=== PATIENT | male | born 1980 | race Caucasian/White ===

== ENCOUNTER 2017-12-05 13:14 | Observation (INO) | payer OTHER ==
[2017-12-05] MEDS ORDERED: NITROGLYCERIN 0.4 MG/TAB SL ONE (13:32)
[2017-12-05] MEDS ORDERED: NA CHLORIDE 0.9% 1,000 ML ONE (13:32)
[2017-12-05] MEDS ORDERED: ONDANSETRON 4 MG/2 ML VIAL ONE (13:32)
[2017-12-05 13:47] LABS: Absolute Lymphocytes (CBC) 3.1 K/uL (0.7-4.9); Absolute Monocytes 0.8 K/uL (0.1-1.3); Absolute Neutrophil 5.9 K/uL (1.8-8.0); Eosinophils % 1.5 % (0-4.4); Hematocrit 45.3 % (39.6-49.0); Lymphocytes % 30.8 % (15.3-44.8); MCH 30.7 pg (27.0-35.0); MCV 89.4 fL (80-100); MPV 9.3 fL (7.6-11.3); Monocytes % 7.7 % (3.3-12.3); RBC Red Blood Cell Count 5.06 M/uL (4.33-5.43)
[2017-12-05 13:53] LABS: Protime INR 1.03
[2017-12-05 14:00] LABS: ALT/SGPT 49 U/L (12-78); AST/SGOT 25 U/L (15-37); Albumin 3.6 g/dL (3.4-5.0); Alkaline Phosphatase 99 U/L (45-117); BUN Blood Urea Nitrogen 12 mg/dL (7-18); Bicarbonate 27 mmol/L (21-32); Bilirubin Direct < 0.1 mg/dL (0-0.2); Bilirubin Total 0.2 mg/dL (0.2-1.0); CKMB Creatine Kinase MB 1.7 ng/mL (0.3-3.6); Creatine Phosphokinase 147 U/L (39-308); Glucose Level 95 mg/dL (74-106); Lipase 162 U/L (73-393); NT PRO-BNP 7 pg/mL (<125); Protein, Total 7.8 g/dL (6.4-8.2); Sodium Level 139 mmol/L (136-145)
--- NOTE | 2017-12-05 14:33 | EKG ---
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
--- NOTE | 2017-12-05 14:44 | RAD REPORT ---
EXAM DESCRIPTION: [place] Single View12/05/2017 1:48 pm CLINICAL HISTORY: Chest pain COMPARISON: none FINDINGS: The lungs appear clear of acute infiltrate. The heart is normal size IMPRESSION: No acute abnormalities displayed
--- NOTE | 2017-12-05 15:56 | ER ---
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 Transition of care: patient was not received from another setting of care. Onset of symptoms was December 05, 2017. Risk Assessment: Do you want to hurt yourself or someone else? Patient reports no desire to harm self or others. Initial Sepsis Screen: Does the patient meet any 2 criteria? No. Patient's initial sepsis screen is negative. Does the patient have a suspected source of infection? No. Patient's initial sepsis screen is negative. Care prior to arrival: None. 13:17 Method Of Arrival: EMS: [facility] tw2 13:17 Acuity: ZULEIKA 3 tw2 Historical: - Allergies: 14:25 No Known Allergies; tw2 - Home Meds: 14:25 None [Active]; tw2 - PMHx: 14:25 None; tw2 - PSHx: 14:25 None; tw2 - Immunization history:: Adult Immunizations up to date. - Social history:: Smoking status: Patient uses tobacco products, smokes one pack cigarettes per day. - Ebola Screening: : Patient denies travel to an Ebola-affected area in the 21 days before illness onset. Screenin:25 Abuse screen: Denies threats or abuse. Nutritional screening: No deficits noted. tw2 Tuberculosis screening: No symptoms or risk factors identified. Fall Risk None identified. Assessment: 13:20 General: Appears in no apparent distress. obese, Behavior is calm, cooperative, tw2 appropriate for age. Pain: Complains of pain in left breast and left lateral anterior chest. Neuro: Level of Consciousness is awake, alert, obeys commands, Oriented to person, place, time, situation. Cardiovascular: Reports chest pain, Heart tones S1 S2 Capillary refill < 3 seconds Patient's skin is warm and dry. Respiratory: Airway is patent Respiratory effort is even, unlabored, Respiratory pattern is regular, symmetrical, Breath sounds are clear bilaterally. GI: No signs and/or symptoms were reported involving the gastrointestinal system. Abdomen is round non-distended, obese, Bowel sounds present X 4 quads. : No signs and/or symptoms were reported regarding the genitourinary system. EENT: No signs and/or symptoms were reported regarding the EENT system. Derm: No signs and/or symptoms reported regarding the dermatologic system. Skin is intact, is healthy with good turgor, Skin temperature is warm. Musculoskeletal: Range of motion: intact in all extremities. 14:24 Reassessment: Patient appears in no apparent distress at this time. No changes from tw2 previously documented assessment. Patient and/or family updated on plan of care and expected duration. Pain level reassessed. Patient is alert, oriented x 3, equal unlabored respirations, skin warm/dry/pink. 15:20 Reassessment: Patient appears in no apparent distress at this time. No changes from tw2 previously documented assessment. Patient and/or family updated on plan of care and expected duration. Pain level reassessed. Patient is alert, oriented x 3, equal unlabored respirations, skin warm/dry/pink. Patient states feeling better. Patient states symptoms have improved. 16:13 Reassessment: Patient appears in no apparent distress at this time. No changes from tw2 previously documented assessment. Patient and/or family updated on plan of care and expected duration. Pain level reassessed. Patient is alert, oriented x 3, equal unlabored respirations, skin warm/dry/pink. 17:12 Reassessment: Patient appears in no apparent distress at this time. No changes from tw2 previously documented assessment. Patient and/or family updated on plan of care and expected duration. Pain level reassessed. Patient is alert, oriented x 3, equal unlabored respirations, skin warm/dry/pink. 18:04 Reassessment: Patient appears in no apparent distress at this time. No changes from tw2 previously documented assessment. Patient and/or family updated on plan of care and expected duration. Pain level reassessed. Patient is alert, oriented x 3, equal unlabored respirations, skin warm/dry/pink. Vital Signs: 13:20 BP 135 / 122; Pulse 103; Resp 19; Pulse Ox 97% on R/A; Pain 10/10; tw2 13:38 BP 135 / 84; Pulse 121; Resp 17; Pulse Ox 95% on R/A; tw2 13:38 Temp 98.6(O); tw2 14:24 BP 116 / 74; Pulse 80; Resp 18; Pulse Ox 98% on R/A; tw2 15:20 BP 118 / 82; Pulse 99; Resp 15; Pulse Ox 99% on R/A; tw2 16:13 BP 111 / 66; Pulse 80; Resp 17; Pulse Ox 97% on R/A; tw2 17:12 BP 116 / 73; Pulse 78; Resp 17; Pulse Ox 97% on R/A; tw2 18:03 BP 129 / 93; Pulse 89; Resp 17; Pulse Ox 97% on R/A; tw2 ED Course: 13:17 Patient arrived in ED. hb 13:18 Jacek Burkett PA is PHCP. cp 13:18 Jacek Sheppard MD is Attending Physician. cp 13:18 Arm band placed on. tw2 13:18 Bed in low position. Call light in reach. Side rails up X2. patient monitor on. Pulse tw2 ox on. NIBP on. 13:24 Dilcia Flores RN is Primary Nurse. tw2 13:25 Inserted saline lock: 20 gauge in left antecubital area, using aseptic technique. Blood tw2 collected. 13:34 EKG done, by eligibility technician. reviewed by Jacek SAPP. at1 13:44 X-ray completed. Portable x-ray completed in exam room. Patient tolerated procedure ag1 well. 13:48 XRAY Chest (1 view) In Process Unspecified. EDMS 14:26 Triage completed. tw2 15:54 Sujata Urrutia MD is Hospitalizing Provider. cp 17:56 Awaiting: attempted to call report, per Carmen, trade union secretary nurse does not know she is tw2 getting a patient and to give her a few minutes. 17:57 No provider procedures requiring assistance completed. Patient admitted, IV remains in tw2 place. Administered Medications: 13:28 Drug: Zofran 4 mg Route: IVP; Site: left antecubital; tw2 15:21 Follow up: Response: No adverse reaction tw2 13:30 Drug: Nitroglycerin 0.4 mg Route: Sublingual; tw2 13:45 Follow up: Response: No adverse reaction; Pain is decreased tw2 13:37 Drug: NS 0.9% 1000 ml Route: IV; Rate: 1 bolus; Site: left antecubital; tw2 16:30 Follow up: IV Status: Completed infusion; IV Intake: 1000ml tw2 Intake: 16:30 IV: 1000ml; Total: 1000ml. tw2 Outcome: 15:55 Decision to Hospitalize by Provider. cp 18:05 Admitted to Med/surg accompanied by tech, via wheelchair, room 421, Report called to tw2 NAOMI Castellano 18:05 Condition: stable 18:05 Instructed on the need for admit. 18:30 Patient left the ED. 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
--- NOTE | 2017-12-05 15:56 | EDPHYS ---
Physician Documentation [facility] Name: Teresita Mireles Age: 37 yrs Sex: Male : 1980 Arrival Date: 12/05/2017 Time: 13:17 Bed 25 Private MD: ED Physician Jacek Sheppard HPI: 12/05 13:15 This 37 yrs old Male presents to ER via Unassigned with complaints of chest cp pain. 13:15 The patient or guardian reports chest pain that is located primarily in the left cp lateral anterior chest and left breast. The pain does not radiate. Duration: The patient or guardian reports a single episode, that is still ongoing. Modifying factors: the symptoms are aggravated by deep breath. 13:15 Patient reports pain started while at work today. cp Historical: - Allergies: 14:25 No Known Allergies; tw2 - Home Meds: 14:25 None [Active]; tw2 - PMHx: 14:25 None; tw2 - PSHx: 14:25 None; tw2 - Immunization history:: Adult Immunizations up to date. - Social history:: Smoking status: Patient uses tobacco products, smokes one pack cigarettes per day. - Ebola Screening: : Patient denies travel to an Ebola-affected area in the 21 days before illness onset. ROS: 13:20 Constitutional: Negative for chills, fever, poor PO intake. cp 13:20 Eyes: Negative for injury, pain, redness, and discharge. cp 13:20 ENT: Negative for drainage from ear(s), ear pain, sore throat, difficulty swallowing, difficulty handling secretions. 13:20 Neck: Negative for pain with movement, pain at rest, stiffness. 13:20 Cardiovascular: Positive for chest pain, Negative for edema, palpitations. 13:20 Respiratory: Negative for cough, wheezing. 13:20 Abdomen/GI: Negative for abdominal pain, nausea, vomiting, and diarrhea, black/tarry stool, rectal bleeding. 13:20 Back: Negative for pain at rest, pain with movement, radiated pain. 13:20 : Negative for urinary symptoms. 13:20 Skin: Negative for cellulitis, rash. 13:20 Neuro: Negative for altered mental status, headache, loss of consciousness, syncope, near syncope, weakness. 13:20 All other systems are negative. Exam: 13:30 ECG was reviewed by the Attending Physician. cp 13:30 Head/Face: Normocephalic, atraumatic. Eyes: Pupils equal round and reactive to light, cp extra-ocular motions intact. Lids and lashes normal. Conjunctiva and sclera are non-icteric and not injected. Cornea within normal limits. Periorbital areas with no swelling, redness, or edema. ENT: Nares patent. No nasal discharge, no septal abnormalities noted. Tympanic membranes are normal and external auditory canals are clear. Oropharynx with no redness, swelling, or masses, exudates, or evidence of obstruction, uvula midline. Mucous membranes moist. Neck: Trachea midline, no thyromegaly or masses palpated, and no cervical lymphadenopathy. Supple, full range of motion without nuchal rigidity, or vertebral point tenderness. No Meningismus. Chest/axilla: Normal chest wall appearance and motion. Nontender with no deformity. No lesions are appreciated. 13:30 Constitutional: The patient appears in no acute distress, alert, awake, non-diaphoretic, non-toxic, well developed, well nourished, obese. 13:30 Cardiovascular: Rate: tachycardic, Rhythm: regular, Pulses: Pulses are 2+ in right cp radial artery and left radial artery. Edema: is not appreciated, JVD: is not appreciated. 13:30 Respiratory: the patient does not display signs of respiratory distress, Respirations: normal, no use of accessory muscles, no retractions, no splinting, no tachypnea, labored breathing, is not present, Breath sounds: are clear throughout, no decreased breath sounds, no stridor, no wheezing. 13:30 Abdomen/GI: Inspection: obese Bowel sounds: active, all quadrants, Palpation: abdomen is soft and non-tender, in all quadrants, rebound tenderness, is not appreciated, voluntary guarding, is not appreciated, involuntary guarding, is not appreciated. 13:30 Back: pain, is absent, ROM is normal. 13:30 Skin: cellulitis, is not appreciated, no rash present. cp 13:30 Neuro: Orientation: to person, place \T\ time. Mentation: lucid, able to follow commands, Cerebellar function: is grossly normal, Motor: moves all fours, strength is normal, Sensation: no obvious gross deficits. Vital Signs: 13:20 BP 135 / 122; Pulse 103; Resp 19; Pulse Ox 97% on R/A; Pain 10/10; tw2 13:38 BP 135 / 84; Pulse 121; Resp 17; Pulse Ox 95% on R/A; tw2 13:38 Temp 98.6(O); tw2 14:24 BP 116 / 74; Pulse 80; Resp 18; Pulse Ox 98% on R/A; tw2 15:20 BP 118 / 82; Pulse 99; Resp 15; Pulse Ox 99% on R/A; tw2 16:13 BP 111 / 66; Pulse 80; Resp 17; Pulse Ox 97% on R/A; tw2 17:12 BP 116 / 73; Pulse 78; Resp 17; Pulse Ox 97% on R/A; tw2 18:03 BP 129 / 93; Pulse 89; Resp 17; Pulse Ox 97% on R/A; tw2 MDM: 13:20 Patient medically screened. cp 14:00 Differential diagnosis: abnormal EKG, acute myocardial infarction, acute pericarditis, cp cholecystitis, Cholelithiasis costochondritis, esophagitis, gastritis, gastroesophageal reflux disease (GERD), pancreatitis, pleurisy, pneumonia, pneumothorax, pulmonary embolus, stable angina, unstable angina. 15:15 Data reviewed: vital signs, nurses notes, lab test result(s), EKG, radiologic studies, cp plain films. 15:15 Test interpretation: by ED physician or midlevel provider: ECG, plain radiologic cp studies. 15:36 Physician consultation: Sujata Urrutia MD was called at 15:37, will call back. cp 12/05 13:19 Order name: Basic Metabolic Panel; Complete Time: 14:04 cp 12/05 13:19 Order name: CBC with Diff; Complete Time: 14:04 cp 12/05 13:19 Order name: Ckmb; Complete Time: 14:04 cp 12/05 13:19 Order name: CPK; Complete Time: 14:04 cp 12/05 13:19 Order name: LFT's; Complete Time: 14:04 cp 12/05 13:19 Order name: Magnesium; Complete Time: 14:04 cp 12/05 13:19 Order name: NT PRO-BNP; Complete Time: 14:04 cp 12/05 13:19 Order name: PT-INR; Complete Time: 14:04 cp 12/05 13:19 Order name: Ptt, Activated; Complete Time: 14:04 cp 08 13:19 Order name: Troponin (emerg Dept Use Only); Complete Time: 14:04 cp 12/05 13:19 Order name: XRAY Chest (1 view); Complete Time: 15:02 cp 08/ 15:02 Interpretation: Report review. cp 08/ 13:19 Order name: Lipase; Complete Time: 14:04 cp 08/ 14:05 Order name: LAB Add On cp 12/05 14:05 Order name: D-Dimer; Complete Time: 14:38 cp 08 13:19 Order name: EKG; Complete Time: 13:20 cp 08 13:19 Order name: Cardiac monitoring; Complete Time: 13:25 cp 12/05 13:19 Order name: EKG - Nurse/Tech; Complete Time: 13:25 cp 12/05 13:19 Order name: IV Saline Lock; Complete Time: 13:25 cp 12/05 13:19 Order name: Labs collected and sent; Complete Time: 13:25 cp 12/05 13:19 Order name: O2 Per Protocol; Complete Time: 13:25 cp 12/05 13:19 Order name: O2 Sat Monitoring; Complete Time: 13:25 cp 12/05 15:21 Order name: Diet Ada 2000 Wu; Complete Time: 15:21 tw2 EC:30 Rate is 106 beats/min. Rhythm is regular. AK interval is normal. QRS interval is cp normal. QT interval is normal. No ST changes noted. Interpreted by me. Reviewed by me. Administered Medications: 13:28 Drug: Zofran 4 mg Route: IVP; Site: left antecubital; tw2 15:21 Follow up: Response: No adverse reaction tw2 13:30 Drug: Nitroglycerin 0.4 mg Route: Sublingual; tw2 13:45 Follow up: Response: No adverse reaction; Pain is decreased tw2 13:37 Drug: NS 0.9% 1000 ml Route: IV; Rate: 1 bolus; Site: left antecubital; tw2 16:30 Follow up: IV Status: Completed infusion; IV Intake: 1000ml tw2 Disposition: 12/06 06:46 Co-signature as Attending Physician, Jacek ROSALES I agree with the assessment and flash plan of care. Disposition: 12/05/17 15:55 Hospitalization ordered by Sujata Urrutia for Observation. Preliminary diagnosis is Chest pain, unspecified. - Bed requested for Telemetry/MedSurg (observation). - Status is Observation. tw2 - Condition is Stable. - Problem is new. - Symptoms have improved. UTI on Admission? No Signatures: Dispatcher [employer] EDBri Duggan RN RN dw Jacek Sheppard MD MD cha Page, Corey, PA PA cp Wise, Tara RN RN tw2 Corrections: (The following items were deleted from the chart) 12/05 17:54 15:55 Hospitalization Ordered by Sujata Urrutia MD for Observation. Preliminary dw diagnosis is Chest pain, unspecified. Bed requested for Telemetry/MedSurg (observation). Status is Observation. Condition is Stable. Problem is new. Symptoms have improved. UTI on Admission? No. cp 18:30 17:54 12/05/2017 15:55 Hospitalization Ordered by Sujata Urrutia MD for Observation. tw2 Preliminary diagnosis is Chest pain, unspecified. Bed requested for Telemetry/MedSurg (observation). Status is Observation. Condition is Stable. Problem is new. Symptoms have improved. UTI on Admission? No. dw
--- NOTE | 2017-12-05 16:34 | P.HP ---
Certification for Inpatient Patient admitted to: Observation With expected LOS: <2 Midnights Patient will require the following post-hospital care: None Practitioner: I am a practitioner with admitting privileges, knowledge of patient current condition, hospital course, and medical plan of care. Services: Services provided to patient in accordance with Admission requirements found in Title 42 Section 412.3 of the Code of Federal Regulations Patient History Date of Service: 12/05/17 Primary Care Provider: [facility] in [place] Reason for admission: Chest pain History of Present Illness: This is a 37-year-old male with no sigmoid past medical history who is a tobacco smoker and gets tobacco as well presented to the ED with some chest discomfort. 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 Patient describes chest pain as sharp and pleurtic in nature. At its worse patient had chest pain of 8/10. Patient stated he tried taking some Advil which did not help him with his pain. The pain was radiating down his back and along the breast area. Patient denies having any nausea vomiting abdominal pain diarrhea or any other associated symptoms. Stated that he was just having some shortness of breath with chest pain occurred. Allergies No Known Allergies Allergy (Unverified 12/05/17 17:13) Home medications list reviewed: Yes - Past Medical/Surgical History Has patient received pneumonia vaccine in the past: No Diabetic: No Past Medical History: Reviewed- Non-Contributory Past Surgical History: Reviewed- Non-Contributory - Family History Family History: Reviewed- Non-Contributory - Social History Smoking Status: Heavy Tobacco smoker (>10 cigarettes/day) Counseled patient to stop smoking for: more than 10 minutes Smoking therapy provided: Yes Patient receptive to therapy: Yes Alcohol use: No CD- Drugs: No Caffeine use: No Place of Residence: Home Review of Systems General: As per HPI Physical Examination - Physical Exam General: Alert, In no apparent distress, Obese HEENT: Atraumatic, PERRLA, Mucous membr. moist/pink, EOMI, Sclerae nonicteric Neck: Supple, 2+ carotid pulse no bruit, No LAD, Without JVD or thyroid abnormality Respiratory: Normal air movement, Expiratory wheezes, Inspiratory wheezes Cardiovascular: Regular rate/rhythm, Normal S1 S2 Gastrointestinal: Normal bowel sounds, No tenderness Musculoskeletal: No tenderness Integumentary: No rashes Neurological: Normal gait, Normal speech, Normal strength at 5/5 x4 extr, Normal tone, Normal affect Lymphatics: No axilla or inguinal lymphadenopathy - Studies Laboratory Data (last 24 hrs) 12/05/17 13:25: PT 12.1, INR 1.03, APTT 36.6 12/05/17 13:25: WBC 9.9, Hgb 15.5, Hct 45.3, Plt Count 251 12/05/17 13:25: Sodium 139, Potassium 4.0, BUN 12, Creatinine 1.10, Glucose 95, Magnesium 2.0, Total Bilirubin 0.2, AST 25, ALT 49, Alkaline Phosphatase 99, Lipase 162 Assessment and Plan - Problems (Diagnosis) (1) Chest pain Current Visit: Yes Status: Acute Plan: 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 Pleurtic in nature. Will r/o ACS -EKG with Sinus Tachycardia with PACs and troponinx 1 negative -Repeat Troponin x 2 -ECHO and treadmill test in AM -ACS medication -Cardiology consultation. Qualifiers: Chest pain type: other chest pain Qualified Code(s): R07.89 - Other chest pain; R07.8 - Other chest pain (2) Tobacco abuse Current Visit: Yes Status: Acute Plan: Educated for > 30mins for tobacco Cessation (3) Obesity Current Visit: Yes Status: Chronic Qualifiers: Obesity type: due to excess calories Obesity classification: adult class 2 (BMI 35 - 39.9) Serious obesity comorbidity presence: without serious comorbidity Body mass index: BMI 35.0-35.9 Qualified Code(s): E66.09 - Other obesity due to excess calories; Z68.35 - Body mass index (BMI) 35.0-35.9, adult Discharge Plan: Home Plan to discharge in: 48 Hours - Advance Directives Does patient have a Living Will: No Does patient have a Durable POA for Healthcare: No - Code Status/Comfort Care Code Status Assessed: Yes Critical Care: No
[2017-12-05] MEDS ORDERED: ACETAMINOPHEN 500 MG TAB PO PRN (19:33)
[2017-12-05] MEDS ORDERED: ONDANSETRON 4 MG/2 ML VIAL IV PRN (19:33)
[2017-12-05] MEDS ORDERED: ATORVASTATIN 20 MG TAB PO SCH (21:00)
[2017-12-05] MEDS: NA CHLORIDE 0.9% 1,000 ML IV SCH (21:22)
[2017-12-06 04:17] LABS: Absolute Lymphocytes (CBC) 2.2 K/uL (0.7-4.9); Absolute Monocytes 0.9 K/uL (0.1-1.3); Absolute Neutrophil 4.8 K/uL (1.8-8.0); Eosinophils % 2.3 % (0-4.4); Hematocrit 41.4 % (39.6-49.0); Lymphocytes % 26.2 % (15.3-44.8); MCV 91.1 fL (80-100); MPV 9.1 fL (7.6-11.3); Monocytes % 11.2 % (3.3-12.3); RBC Red Blood Cell Count 4.54 M/uL (4.33-5.43)
[2017-12-06 04:26] LABS: Albumin 3.1 g/dL (3.4-5.0); Bilirubin Total 0.4 mg/dL (0.2-1.0); Protein, Total 6.6 g/dL (6.4-8.2)
[2017-12-06] MEDS: NA CHLORIDE 0.9% 1,000 ML IV SCH ×2 (05:29→15:33)
[2017-12-06] MEDS ORDERED: METOPROLOL TAR 25 MG TAB PO SCH (06:00)
--- NOTE | 2017-12-06 07:04 | CON ---
Identification: A 37-year-old man. Chief Complaint: Dizziness and tightness in the chest. 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 He was outside in the heat of December using his arms to sand down deepika metal when he went from a sitting and bending over position to th e upright position and he felt lightheaded and dizzy, sweaty, very uncomfortable. He got in some air conditioning and later came to the ER. EKGs, cardiac enzymes have all been normal. Mr. Mireles has ne pricilla had myocardial infarction, stroke, diabetes, hypertension, or dyslipidemia. He uses tobacco. He takes medications for gastroesophageal reflux disease. Allergies: HAS NO ALLERGIES. Social History: He dips tobacco. Does not smoke. Physical Examination: General: He is 6 feet 2 inches, 286 pounds. HEENT: Unremarkable. Lungs: Clear. Heart: Normal. Abdomen: Soft. Extremities: Normal. No cyanosis, clubbing, or edema. Distal pulses normal. Laboratory Data: EKG normal. Assessment And Plan: The patient is scheduled to have a stress test and echocardiogram later today. I think if those are normal, we will be able to discharge him without any further testing. He has b een instructed on tobacco cessation and he has been instructed on regular followup visits to see if h otilia needs any recommendations on losing weight, exercise program and screening for diabetes. He is definitely at risk for diabetes and heart disease in the future. MAIRA/ABBY Voice ID: [id number] Report ID: [id number]
[2017-12-06] MEDS ORDERED: ASPIRIN EC 81 MG TAB PO SCH (09:00)
--- NOTE | 2017-12-06 12:40 | ECHO ---
HEIGHT: 6 ft 2 in WEIGHT: 286 lb 3.2 oz DATE OF STUDY: 12/06/[address]: Sujata Urrutia MD 2-DIMENSIONAL: YES M.MODE: YES DOPPLER: YES COLOR FLOW: YES TDS: NO PORTABLE: NO DEFINITY: NO BUBBLE STUDY: NO DIAGNOSIS: CHEST PAIN CARDIAC HISTORY: CATHERIZATION: NO SURGERY: NO PROSTHETIC VALVE: NO PACEMAKER: NO MEASUREMENTS (cm) DIASTOLIC (NORMALS) SYSTOLIC (NORMALS) IVSd 1.1 (0.6-1.2) LA Diam 3.1 (1.9-4.0) LVEF 79% LVIDd 4.4 (3.5-5.7) LVIDs 2.3 (2.0-3.5) %FS 48% LVPWd 1.2 (0.6-1.2) Ao Diam 3.4 (2.0-3.7) 2 DIMENSIONAL ASSESSMENT: RIGHT ATRIUM: NORMAL LEFT ATRIUM: NORMAL RIGHT VENTRICLE: NORMAL LEFT VENTRICLE: NORMAL TRICUSPID VALVE: NORMAL MITRAL VALVE: NORMAL PULMONIC VALVE: NORMAL AORTIC VALVE: NORMAL PERICARDIAL EFFUSION: NONE AORTIC ROOT: NORMAL LEFT VENTRICULAR WALL MOTION: NORMAL. DOPPLER/COLOR FLOW: NORMAL. COMMENTS: NORMAL 2D ECHO WITH DOPPLER. TECHNOLOGIST: VINAYAK RICHEY
--- NOTE | 2017-12-06 12:52 | TREADMILL ---
70% H.R.: 127 85% H.R.: 154 90% H.R.: 163 100% H.R.: 181 DX: CHEST PAIN Date of Study: 12/06/17 Ht: 6 2 Wt: 286 lb 3.2 oz Consulting Physician: RASHI MEDICATIONS: TYLENOL, ASPIRIN, LIPITOR, ZOFRAN HISTORY: 37 YEAR OLD MALE WITH CHEST PAIN PHYSICIAL EXAMINATION: RESTING B.P.: 140/95 RESTING H.R.: 91 RESTING EKG: NORMAL PROTOCOL: VISHNU ROUTINE EXERCISE TIME: 8:00 MAXIMUM HEART RATE: 164 % OF PREDICTED B.P. AT PEAK STRESS: 178/100 H.R. AT 1 MINUTE POST EXERCISE: 155 IMPRESSION: ROUTINE VISHNU STOPPED DUE TO TARGET HEART RATE REACHED. AND FATIGUE. NO CHEST PAIN. NO VENTRICULAR TACHYCARDIA. NO SUPRA VENTRICULAR TACHYCARDIA. NORMAL STRESS TEST, NO ST DEPRESSION
--- NOTE | 2017-12-06 16:00 | P.DS ---
Admission Date: 12/05/17 Discharge Date: 12/06/17 Primary Care Provider: [facility] in [place] Disposition: ROUTINE DISCHARGE Discharge Condition: GOOD Reason for Admission: Chest pain Consultations: Cardiology - Problems (1) Chest pain Onset Date: 12/06/17 Current Visit: Yes Status: Acute Qualifiers: Chest pain type: other chest pain Qualified Code(s): R07.89 - Other chest pain; R07.8 - Other chest pain (2) Tobacco abuse Onset Date: 12/06/17 Current Visit: Yes Status: Acute (3) Obesity Onset Date: 12/06/17 Current Visit: Yes Status: Chronic Qualifiers: Obesity type: due to excess calories Obesity classification: adult class 2 (BMI 35 - 39.9) Serious obesity comorbidity presence: without serious comorbidity Body mass index: BMI 35.0-35.9 Qualified Code(s): E66.09 - Other obesity due to excess calories; Z68.35 - Body mass index (BMI) 35.0-35.9, adult Brief History of Present Illness: This is a 37-year-old male with no sigmoid past medical history who is a tobacco smoker and gets tobacco as well presented to the ED with some chest discomfort. 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 Patient describes chest pain as sharp and pleurtic in nature. At its worse patient had chest pain of 8/10. Patient stated he tried taking some Advil which did not help him with his pain. The pain was radiating down his back and along the breast area. Patient denies having any nausea vomiting abdominal pain diarrhea or any other associated symptoms. Stated that he was just having some shortness of breath with chest pain occurred. Hospital Course: Overall during the hospital stay patient remained stable Patient was initially admitted to the hospital for chest pain. Echocardiogram and treadmill stress test which was both negative for any acute ischemia thus ruling out ACS. Patient's chest pain was most likely secondary to allergies reaction to the sandblasting. Patient was educated extensively on using protective gear at work while [employer]. Patient demonstrated understanding and distally home under stable condition. Patient was also educated extensively on tobacco cessation diet and exercise. Patient does have high risk for cardiac disease in the future and thus was asked to follow up with apparently care doctor for further workup. Vital Signs/Physical Exam: Temp Pulse Resp BP Pulse Ox 98.5 F 73 18 140/83 98 12/06/17 12:00 12/06/17 12:00 12/06/17 12:00 12/06/17 12:00 12/06/17 12:00 General: Alert, In no apparent distress HEENT: Atraumatic, PERRLA, EOMI Neck: Supple, JVD not distended Respiratory: Clear to auscultation bilaterally, Normal air movement Cardiovascular: Regular rate/rhythm, Normal S1 S2 Gastrointestinal: Normal bowel sounds, No tenderness Musculoskeletal: No tenderness Integumentary: No rashes Neurological: Normal speech, Normal tone, Normal affect Lymphatics: No axilla or inguinal lymphadenopathy Laboratory Data at Discharge: WBC 8.3 K/uL (4.3-10.9) D 12/06/17 03:36 Hgb 14.1 g/dL (13.6-17.9) 12/06/17 03:36 Hct 41.4 % (39.6-49.0) 12/06/17 03:36 Plt Count 219 K/uL (152-406) 12/06/17 03:36 PT 12.1 SECONDS (9.5-12.5) 12/05/17 13:25 INR 1.03 12/05/17 13:25 APTT 36.6 SECONDS (24.3-36.9) 12/05/17 13:25 Sodium 140 mmol/L (136-145) 12/06/17 03:36 Potassium 4.0 mmol/L (3.5-5.1) 12/06/17 03:36 BUN 13 mg/dL (7-18) 12/06/17 03:36 Creatinine 1.00 mg/dL (0.55-1.3) 12/06/17 03:36 Glucose 113 mg/dL (74-106) H 12/06/17 03:36 Phosphorus 4.0 mg/dL (2.5-4.9) 12/06/17 03:36 Magnesium 2.0 mg/dL (1.8-2.4) 12/06/17 03:36 Total Bilirubin 0.4 mg/dL (0.2-1.0) 12/06/17 03:36 AST 22 U/L (15-37) 12/06/17 03:36 ALT 41 U/L (12-78) 12/06/17 03:36 Alkaline Phosphatase 88 U/L (45-117) 12/06/17 03:36 Troponin I < 0.02 ng/mL (0.0-0.045) 12/06/17 11:06 Triglycerides 225 mg/dL (<150) H 12/06/17 03:36 Cholesterol 136 mg/dL (<200) 12/06/17 03:36 HDL Cholesterol 32 mg/dL (40-60) L 12/06/17 03:36 Cholesterol/HDL Ratio 4.25 12/06/17 03:36 Lipase 162 U/L (73-393) 12/05/17 13:25 Home Medications: NK [No Home Meds] 12/05/17 Patient Discharge Instructions: Please f.u with PCP in [place] in 1 to 2 days post discharge. No new medication Diet: Regular Activity: Ad zoran
== END 2017-12-06 15:58 | disposition home or self-care (01) ==
LOC: ER 13:14 → ERHOLD 16:18 → 4TH 18:09
PROVIDERS: ADMIT Family Medicine; ATTEND Family Medicine
DX: R07.9 Chest pain, unspecified (principal); E66.09 Other obesity due to excess calories; Z68.35 Body mass index [BMI] 35.0-35.9, adult; K21.9 Gastro-esophageal reflux disease without esophagitis; F17.220 Nicotine dependence, chewing tobacco, uncomplicated; F17.210 Nicotine dependence, cigarettes, uncomplicated
CPT/HCPCS: 36415; 71045; 80048; 80053; 80061; 80076; 82550; 82553; 83690; 83735; 83880; 84100; 84443; 84484; 85025; 85379; 85610; 85730; 93005; 93017; 93306; 96361; 96374; 99285; G0378; J2405; J7030